=== PATIENT | female | born 1965 | race Caucasian/White ===

== ENCOUNTER 2025-06-15 16:29 | Emergency (ER) | payer OTHER ==
[~2025-06-15] VITALS: Ht 172.7 cm; Wt 91.4 kg
[2025-06-15] MEDS ORDERED: ATORVASTATIN CA20 MG PO (17:13)
[2025-06-15] MEDS ORDERED: FLUOXETINE HCL20 MG PO (17:13)
[2025-06-15] MEDS ORDERED: METFORMIN HCL500 M2 PO (17:13)
[2025-06-15] MEDS ORDERED: LISINOPRIL10 MG PO (17:13)
[2025-06-15] MEDS ORDERED: WELLBUTRIN XL300 MG PO (17:13)
[2025-06-15 18:44] VITALS: PULSE 71; RESP 18; TEMP 98; O2SAT 98
[2025-06-15] MEDS ORDERED: IBUPROFEN600 MG PO (18:54)
== END 2025-06-15 19:04 | disposition home or self-care (01) ==
LOC: FSED 16:36
DX: M25.512 Pain in left shoulder (principal); M79.89 Other specified soft tissue disorders; X50.9XXA Other and unspecified overexertion or strenuous movements or postures, initial encounter; Y92.89 Other specified places as the place of occurrence of the external cause; I10 Essential (primary) hypertension; E11.9 Type 2 diabetes mellitus without complications; E78.5 Hyperlipidemia, unspecified; F84.0 Autistic disorder; F41.9 Anxiety disorder, unspecified; F32.A Depression, unspecified; F17.210 Nicotine dependence, cigarettes, uncomplicated
CPT/HCPCS: 93971; 99283